=== PATIENT | male | born 1985 | race Caucasian/White ===

== ENCOUNTER → 2021-06-13 14:05 | Outpatient (BNVA) | payer OTHER, SELFPAY | PROVIDERS: Visit Provider Nurse Practitioner Family | DX: Z20.822 Contact with and (suspected) exposure to COVID-19 (principal) | CPT/HCPCS: 87426 ==

== ENCOUNTER → 2021-07-25 14:50 | Outpatient (BNVA) | payer OTHER, SELFPAY | PROVIDERS: Visit Provider Nurse Practitioner Family | DX: Z20.822 Contact with and (suspected) exposure to COVID-19 (principal) | CPT/HCPCS: 87426 ==

== ENCOUNTER → 2021-08-24 11:08 | Outpatient (BNVA) | payer SELFPAY | PROVIDERS: Visit Provider Nurse Practitioner Family | DX: Z20.828 Contact with and (suspected) exposure to other viral communicable diseases (principal) | CPT/HCPCS: 87635 ==

== ENCOUNTER 2022-09-08 19:12 | Emergency (ER) | payer OTHER, SELFPAY ==
[2022-09-08 19:24] VITALS: BP 136/83; PULSE 79; RESP 18; TEMP 37.4; O2SAT 98; BMI 27.6
--- NOTE | 2022-09-08 19:47 | W.ED.WOUNDLC ---
HPI - Wound/Laceration General: Chief Complaint: Wound/Laceration Stated Complaint: Right hand lac, sent by urgent care Time Seen by Provider: 09/08/22 19:27 Source: patient Mode of arrival: ambulatory History of Present Illness: 36-year-old male sent from urgent care to the emergency room with a laceration of difficult time controlling bleeding. 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 They did update his tetanus here he had local anesthetic. Onset (ago): minute(s) Extremity Location: Right: hand Place: home Patient tetanus UTD: Yes (Updated at urgent care) Context: accidental Associated symptoms: Denies chills or fever(s) Treatments prior to arrival: bandage and other (Local anesthetic at urgent care) Review of Systems Const: Denies: fever(s), chills, body aches, change in appetite, fatigue or malaise ENMT: Denies: throat pain, ear or mastoid pain, nasal discharge or nasal congestion Resp: Denies: dyspnea, productive cough or non-productive cough PFSH ED PFSH: Medical History (Updated 09/11/22 @ 06:22 by Edurado Lam DO) No significant past medical history Surgical History (Updated 09/11/22 @ 06:22 by dEuardo Lam DO) No pertinent past surgical history Social History Smoking and tobacco status: current every day smoker cigarettes Physical Exam Const: COMMON NORMALS: no acute distress GENERAL APPEARANCE: cooperative and comfortable ORIENTATION/CONSCIOUSNESS: Yes awake, Yes oriented to person, Yes oriented to place and Yes oriented to time HENMT: COMMON NORMALS: normocephalic and atraumatic HEAD & SCALP: normocephalic and atraumatic Resp: COMMON NORMALS: normal respiratory effort, No retractions, No use of accessory muscles and clear to auscultation bilaterally AUSCULTATION: clear to auscultation bilaterally Cardio: COMMON NORMALS: regular rate, regular rhythm and No murmurs present (Cardio) RATE: regular rate RHYTHM: regular rhythm Extremity: OTHER: 8 cm flap laceration of the dorsum of the left hand between the first and second metacarpals. Moderate amount of bleeding on arrival here and kept elevated with direct pressure bleeding was controlled. Neuro: SENSORIUM/ORIENTATION: Yes oriented to person, Yes oriented to place and Yes oriented to time Skin: COMMON NORMALS: no rashes or lesions noted GENERAL SKIN EXAM: no rashes or lesions noted Procedures Laceration Laceration 1: Site: hand Side (If applicable): right Size (cm): 8 Description: flap Depth: simple, single layer Pre-repair: irrigated extensively and deep structures intact Skin layer closed with: nylon Size (cm): 4-0 Number of sutures: 2 Technique: simple, interrupted (1) and running (1) Course Vital Signs: Vital signs: Vital Signs Temperature 99.4 F 09/08/22 19:24 Pulse Rate 70 09/08/22 20:14 Respiratory Rate 14 09/08/22 20:14 Blood Pressure 136/90 09/08/22 20:14 Pulse Oximetry 100 09/08/22 20:14 Oxygen Delivery Me thod 09/08/22 19:24 MDM - Wound/Laceration Medical Decision Making On arrival here patient had bulky pressure bandage with Coban. Bleeding had been largely controlled. Remainder the bleeding is controlled with elevation of the limb during suturing. Patient still had anesthesia from urgent care. The apex of the wound was approximated with a single interrupted suture the remainder of the wound closed with a running suture good approximation cosmesis and hemostasis no further bleeding wound care instructions given sutures out in 10 days. Tetanus is already been updated. Medical Records I reviewed the patient's medical records. Discharge Plan Discharge Patient Disposition: Home Clinical Impression: Laceration Condition: Stable Prescriptions: No Action No Known Home Medications Discharge Orders: Discharge ED (Routine); Ordered 09/08/22 Ordered By: Eduardo Lam Discharge Activity: Increase activity as tolerated Patient Instructions: Laceration (ED), Opioid Safety, Pain Management Activity Restrictions/Additional Instructions: You are seen in the emergency room for a laceration. Sutures should remain in place for 10 days. Apply [id number] topical Vaseline-based antibiotic ointment at least once daily. Your primary care doc can remove the sutures at 10 days. Coding Level of Care Code ED Marine Electronics Technician for Olivia Palacios
[2022-09-08 20:14] VITALS: BP 136/90; PULSE 70; RESP 14; O2SAT 100
== END 2022-09-08 20:19 | disposition home or self-care (01) ==
PROVIDERS: Emergency Provider Family Medicine
DX: S61.411A Laceration without foreign body of right hand, initial encounter (principal); W26.8XXA Contact with other sharp object(s), not elsewhere classified, initial encounter; F17.210 Nicotine dependence, cigarettes, uncomplicated
CPT/HCPCS: 12004; 99282